=== PATIENT | male | born 1960 | race Caucasian/White ===

== ENCOUNTER 2018-03-05 18:22 | Emergency (ER) | payer MEDICAID ==
[~2018-03-05] VITALS: Ht 185.4 cm; Wt 88.5 kg
[2018-03-05 18:45] VITALS: BP 149/108
--- NOTE | 2018-03-05 18:47 | NUR ---
PT TRIAGED AND SENT TO ER LOBBY
--- NOTE | 2018-03-05 20:10 | NUR ---
Reassessed. No new complaints or changes.
--- NOTE | 2018-03-05 20:52 | NUR ---
PT AMBULATED TO CHAIR E
--- NOTE | 2018-03-05 20:54 | NUR ---
PT C/O NEEDING A MEDICATION REFILL OF LEVOTHYROXINE 150 MCG. MISSED 3 WEEKS. NO OTHER COMPLAINTS. HX---HYPOTHYROIDISM, CA MED---LEVOTHYROXINE
--- NOTE | 2018-03-05 20:54 | NUR ---
AT CHAIRSIDE PERFORMING MSE
[2018-03-05 21:10] VITALS: BP 136/87
--- NOTE | 2018-03-05 21:10 | NUR ---
Patient discharged with v/s stable. Written and verbal after care instructions given and explained. Patient alert, oriented and verbalized understanding of instructions. Ambulatory with steady gait. All questions addressed prior to discharge. ID band removed. Patient advised to follow up with PMD. Rx of Levothyroxine given. Patient educated on indication of medication including possible reaction and side effects. Opportunity to ask questions provided and answered.
== END 2018-03-05 21:10 | disposition home or self-care (01) ==
LOC: MED 18:22
DX: E03.9 Hypothyroidism, unspecified (principal); Z76.0 Encounter for issue of repeat prescription
CPT/HCPCS: 99283